=== PATIENT | male | born 2005 | race Asian ===

== ENCOUNTER 2025-06-21 22:09 | Emergency (ER) | payer SELFPAY ==
[2025-06-21 22:16] VITALS: BP 139/66; PULSE 75; RESP 18; TEMP 36.7; O2SAT 99; BMI 25.1
--- OUTSIDE RECORDS SUMMARY | 2025-06-21 22:47 | XMS_ITS | Clinical Summary ---
Author Organization [facility] Address [address] [place] [id number] Phone Care Team Providers Care Fixer Boarding Room Name Role Phone Pcp, Unknown Primary Care Provider Unavailabl e Allergies No known active allergies Medications No known medications Social History Tobacco Use Types Packs/Day Years Used Date Smoking Tobacco: Never Smokeless Tobacco: Never Tobacco Cessation:Counseling Given: Not Answered Alcohol Use Standard Drinks/Week Comments Not Currently 0 (1 standard drink = 0.6 oz pur e alcohol) Education Answer Date Recorded Are you interested in more education? Not on shahnaz e 09/07/2023 Are you concerned about learning? Not on file 09/07/2023 No 09/07/2023 No 09/07/2023 Digital Access Answer Date Recorded No 09/07/2023 No 09/07/2023 Reliable internet access at home? Not on file 09/07/2023 Device with a working camera? Not on file Intimate Partner Violence Answer Date R ecorded Are you denied basic needs s uch as food, clothing, or medical care? No 09/07/2023 In the past 12 months have y ou been in a relationship with a person who hurts, threatens, or tries to control you? No 09/07/2023 Are you denied basic needs s uch as food, clothing, or medical care? No 09/07/2023 In the past 12 months have y ou been in a relationship with a person who hurts, threatens, or tries to control you? No 09/07/2023 Sex and Gender Information Value Date Recorded Sex Assigned at Male 09/07/2023 5:05 PM EST Legal Sex Male 5:03 PM EST Gender Identity Male 09/07/2023 5:05 PM EST Sexual Orientation Straight 09/07/2023 5: 05 PM EST Last Filed Vital Signs Vital Sign Reading Time Taken Comments Blood Pressure 146/78 09/07/2023 7:00 PM EST Pulse 71 09/07/2023 7:00 PM EST Temperature 35.6 C (96.1 F) 09/07/2023 7:00 PM EST Respiratory Rate 16 09/07/2023 7:00 PM EST Oxygen Saturation 99% 09/07/2023 7:00 PM EST Inhaled Oxygen Concentration - - Weight 34.5 kg (76 lb) 09/07/2023 5:05 PM EST Height 174 cm (5' 8.5 ) 09/07/2023 5:05 PM EST Body Mass Index 11.39 09/07/2023 5:05 PM EST Plan of Treatment Health Maintenance Due Date Last Done Comments Adult Td,Tdap Booster 2003 DEPRESSION SCREENING 2015 SMOKING Hx and SMOKELESS TOB ACCO SCREENING 2016 HPV VACCINES (1 - Male 3-dos e series) 2018 MENINGOCOCCAL VACCINES (B) ( 1 of 2 - Standard) 2019 HEPATITIS C SCREENING 2021 HIV ONE-TIME SCREENING (18-6 5 YEARS) 2021 INFLUENZA VACCINE (#1) 2025 COVID-19 VACCINE (1 - 2023-2 5 season) 2025 HEPATITIS A VACCINES Aged Out No long er eligible based on patient's age to complete this topic HIB VACCINES Aged Out No longer eligi ble based on patient's age to complete this topic MENINGOCOCCAL VACCINES (ACWY) Aged Out No longer eligible based on patient's age to complete this topic PNEUMOCOCCAL VACCINES (0-49 years) Aged Out No longer eligible based on patient's age to complete this topic Medical Devices Not on file Insurance [facility] BURGOSAUGUSTINEJesús Care Teams Fixer Boarding Room Relationship Specialty Start Date End Date Pcp, Unknown PCP - General 09/07/23 Additional Source Comments The information contained in this document represents components of the legal health record. It is not the complete legal health record.[facility]
--- NOTE | 2025-06-21 23:11 | ED_ITS ---
HPI - Eye Problem General Chief complaint: Eye Problems Stated complaint: Seeing black dots in right eye Time Seen by Provider: 06/21/25 23:10 Source: patient Mode of arrival: ambulatory Limitations: no limitations History of Present Illness ED Provider: Dnote CAAL HPI Narrative: The patient is a 20-year-old otherwise healthy male presenting to the ED reporting he was playing soccer when he was struck by the soccer ball on his right eye. The patient reports immediately after being hit, he began developing several black floaters/dots in his right eye. The patient stopped playing, re moved his contact lens, and laid down to close his eyes for a short period of time, however symptoms persisted prompting ED evaluation. Patient reports floaters are still present in the right eye with mild blurring. Left eye has no vision abnormalities. The patient denies curtain dropping vision loss, denies other recent trauma. Related Data Allergies Allergy/AdvReac Type Severity Reaction Status Date / Time No Known Allergies Allergy Verified 06/21/25 22:21 Review of Systems Review of Systems: Yes all other systems are reviewed and are negative PMFSH Social History Social History Advance Directives: No Advance Directives Information Provided: No Do you have a plan to hurt others: No Plan Physical Exam Vital Signs: Vital Signs: Last Vital Signs Temp 98.0 F 06/21/25 22:16 Pulse 75 06/21/25 22:16 Resp 18 06/21/25 22:16 BP 139/66 06/21/25 22:16 Pulse Ox 99 06/21/25 22:16 O2 Del Method Room Air 06/21/25 22:16 BMI result Body Mass Index 25.1 CONSTITUTIONAL: The patient appears non-toxic, well nourished and in no acute distress. Vital signs as documented. HEAD: Atraumatic, normocephalic. EYES: EOMs intact and nonpainful, pupils equal, round, and reactive to light, conjunctiva clear, no exudate. Fluorescein staining reveals no corneal abrasion or foreign body, negative Barbra sign. Intra-ocular pressures are 14.4 on the right, 19.6 on the left. Bedside point of care ocular ultrasound reveals abnormality of the right concerning for possible vitreous hemorrhage. Unremarkable ocular ultrasound of the left. ENT: Nares patent, no discharge. Airway patent, no audible stridor, visible mucosa is pink and moist without noted lesions. NECK: trachea is midline, no obvious masses or gross abnormalities. CHEST: Symmetric movement, normal appearance. LUNGS: Non-labored work of breathing. CARDIAC: No evidence of hypoperfusion. ABDOMEN: Nondistended, no obvious injury. : Deferred. EXTREMITIES: Moves all extremities spontaneously without reported pain. No obvious injury or deformity noted. NEURO: Alert and oriented x3, CN II-XII appear grossly intact. Cerebellar Functioning grossly intact. Speech clear and appropriate. SKIN: Warm, dry, color appropriate. No rashes or lesions noted. Medications Administered Discontinued Medications Generic Name Dose Route Start Last Admin Trade Name Freq PRN Reason Stop Dose Admin Tetracaine HCl 3 drop 06/21/25 23:18 06/21/25 23:30 Tetracaine Hcl/Pf 0.5% Oph Laurie 4 Ml Drops EYE-BOTH 06/21/25 23:19 3 drop ONCE ONE Administration Medical Decision Making Medical Decision Making MDM Narrative: 11:55 PM 06/21/2025 (Patel CAAL): The patient is a 20-year-old otherwise healthy male presenting to the ED reporting he was playing soccer when he was struck by the soccer ball on his right eye. The patient reports immediately after being hit, he began developing several black floaters/dots in his right eye. The patient stopped playing, removed his contact lens, and laid down to close his eyes for a short period of time. However symptoms persisted prompting ED evaluation. Patient reports floaters are still present in the right eye with mild blurring, Left eye has no vision abnormalities. The patient denies curtain dropping vision loss, denies other recent trauma. Pupils are equal round and appropriately reactive, IOPs are normal, 14.4 on the affected right eye, 19.6 on the unaffected left eye. Flourescein staining shows no evidence of corneal abrasion or FB, negative Barbra sign. On ocular US left eye is unremarkable, however there is concern for possible vitreous hemorrhage in the right eye. Patient's case will be discussed with Dr. Conley from Ophthalmology. 1:02 AM 06/22/2025 (Patel CAAL): The patient's case was discussed with on-call singing telegram performer Dr. Conley who agrees patient may be suffering from vitreous detachment versus hemorrhage. Dr. Conley advises he is in the OR throughout the day tomorrow, we will not be able to follow up tomorrow, instead recommends patient follow up with his biometrics instructor for a dilated exam tomorrow, if patient's biometrics instructor is not able to do a dilated exam patient can be referred to Dr. Conley's office for evaluation to Sunday. Patient will be educated per Dr. Conley's recommendations that if he develops any flashing lights, curtain vision changes, or other vision loss he should immediately be seen at [facility] ED for emergent ophthalmology referral. Admission/Observation Consideration of admission/observation: Escalation of care including admission/observation considered Consult Healthcare Provider Management of the patient was discussed with: Blueprint Reproducer External Record Review External record reviewed: Outpatient record Prescription Management I considered prescription management with: Pain Medication Discharge Plan Discharge Clinical Impression: Vitreous detachment of right eye Patient Disposition: Home, Self-Care Instructions: Eye (Visual) Floaters (ED) Additional Instructions: Thank you for choosing [facility]'s Emergency Department for your care today. At this time there is no indication for admission to the hospital or continued ED observation, and it is safe to discharge you home. Your symptoms today are consistent with a vitreous detachment versus vitreous hemorrhage of your right eye as a result of the soccer ball injury. We have discussed your case with our on-call singing telegram performer who recommends you follow up with the your biometrics instructor tomorrow for a dilated eye exam. If your biometrics instructor is not able to perform a dilated exam tomorrow, we recommend you call our singing telegram performer's office at the number provided to schedule an appointment for re-evaluation on Sunday. It is extremely important that if you at any time develop flashing lights or vision loss, such as a curtain dropping over your vision, you must immediately go to [facility] ED for emergent Ophthalmology evaluation. Please also follow up with your primary care physician for re-evaluation and continued preventative care. If you do not have a primary care physician, please call the [facility] at [phone] to establish a new primary care physician. While waiting to establish your new primary care physician, you can call our [facility]in [facility] at [phone] for non-emergency needs. Please return to the emergency department if you develop a severe or sudden change in your symptoms, a fever over 100.4 that does not improve with Tylenol or Ibuprofen, recurrent vomiting, or any other new or worsening symptoms or concerns. Referrals: Osorio Conley [Physician, Ophthalmology] Clinical Impression: Vitreous detachment of right eye Print Language: Cymro
[2025-06-21] MEDS: Tetracaine HCl/PF 0.5% Oph Sol 4 ML DROPS 3 DROP EYE-BOTH (23:30)
[2025-06-22 01:43] VITALS: BP 127/51; PULSE 56; TEMP 36.9; O2SAT 98
[2025-06-22 01:59] VITALS: BP 127/51; PULSE 56; RESP 16; TEMP 36.9; O2SAT 98
== END 2025-06-22 02:04 | disposition home or self-care (01) ==
PROVIDERS: Emergency Provider Emergency Medicine
DX: H43.811 Vitreous degeneration, right eye (principal); W21.02XA Struck by soccer ball, initial encounter; Y93.79 Activity, other specified sports and athletics; Y92.89 Other specified places as the place of occurrence of the external cause; Y99.8 Other external cause status
CPT/HCPCS: 99283